=== PATIENT | male | born 1950 ===

== ENCOUNTER 2016-08-10 08:40 | Inpatient (IN) | payer OTHER ==
--- NOTE | 2016-08-04 17:47 | HP ---
HISTORY AND PHYSICAL: DATE OF ADMISSION/SURGERY: 08/10/16 ATTENDING SURGEON: Dr. Fuller (DICTATED BY PONCE DICK) PROCEDURE: Left total hip arthroplasty. CHIEF COMPLAINT: Left hip pain. HISTORY OF PRESENT ILLNESS: Mr. Cantor is a 66-year-old gentleman with complaints of left hip pain secondary to advanced osteoarthritis. He has failed conservative management and has elected to proceed with a left total hip arthroplasty which is scheduled for 08/10/[address] Fuller. PAST MEDICAL HISTORY: 1. Coronary artery disease. 2. Hyperlipidemia. 3. Hypertension. 4. Sleep apnea. 5. Basal cell carcinoma of the skin. PAST SURGICAL HISTORY: 1. Stent placement. 2. Cataract removal. 3. Hernia repair. 4. Right total hip arthroplasty. 5. Tonsillectomy. 6. Skin graft surgery. CURRENT MEDICATIONS: 1. Naproxen 500 mg once a day. 2. Ipratropium bromide 0.03% intranasal spray twice daily. 3. Dymista 137/50 mcg/ACT 1 spray twice a day. 4. Cholestyramine daily. 5. Atorvastatin calcium 80 mg daily. 6. Metoprolol ER 50 mg daily. 7. Zetia 10 mg daily. 8. Aspirin 81 mg daily. 9. Glucosamine/chondroitin daily. 10. Calcium, magnesium, zinc, and vitamin D daily. 11. Milk thistle 1 tab daily. 12. [place]-3-6-9 complex 1 pill daily. 13. Ocuvite Lutein 1 pill daily. 14. Multivitamin 1 tab daily. 15. CoQ10 10 mg 1 capsule daily. 16. Chromium picolinate 200 mcg 1 pill daily. 17. Selenium 100 mcg 1 tab daily. 18. Potassium 99 mg 1 tab daily. 19. Zyrtec 10 mg daily. ALLERGIES: To NIASPAN, POLLEN, MOLD, and NICOTINE. FAMILY HISTORY: Heart disease, Alzheimer's, and hypertension. SOCIAL HISTORY: This is a 66-year-old gentleman. He lives with his . He does not smoke or use drugs. Uses occasional alcohol. REVIEW OF SYSTEMS: A complete 14-point review of systems was reviewed with the patient, was all negative or noncontributory. PHYSICAL EXAMINATION GENERAL: He is well developed, well nourished in no acute distress. VITAL SIGNS: He stands 5 feet 5 inches tall, weighs 190 pounds. His blood pressure is 128/75, his heart rate is 72. HEENT: Normocephalic, atraumatic. NECK: Supple. No palpable lymph nodes. PULMONARY: The lungs are clear to auscultation. CARDIO: Regular rate and rhythm. Strong S1, S2. ABDOMEN: Soft, nontender, nondistended. NEUROLOGICAL: Alert and oriented x3. Cranial nerves II through XII are intact. MUSCULOSKELETAL: Left lower extremity: The skin is intact. He walks with an antalgic-type gait favoring his left leg. He has limited internal and external rotation of the left hip. His lower extremity muscle group strengths are intact at 5/5. He has intact sensation and 2+ dorsalis pedis pulses. ASSESSMENT AND PLAN: Mr. Cantor is a 66-year-old gentleman with complaints of left hip pain secondary to advanced osteoarthritis. He has failed conservative management and has elected to proceed with a left total hip arthroplasty which is scheduled for 08/10/[address] Fuller discussed the risks and benefits of the surgery and all of his questions were answered. Percocet and Colace were sent to his pharmacy for postoperative pain control. He will likely use aspirin 325 twice a day for DVT prophylaxis once home. He will follow up with Dr. Fuller in 2 weeks following the surgery. PONCE DICK [id number]/[facility] #: [id number] MTDChauncey
[~2016-08-10 08:40] MED LIST: Buffered Lidocaine 0.9% SYRIN* 5 ML/SYR SYRINGE INTRADERM ONE; Gabapentin CAP(*) 400 MG PO ONE; Naproxen TAB* 250 MG PO ONE; Sodium Citrate/Citric Acid* 15 ML UDC PO ONE
[2016-08-10] MEDS ORDERED: Gabapentin CAP(*) 300 MG ONE ×2 (09:04→09:32)
[2016-08-10] MEDS ORDERED: ceFAZolin 2 GM PREMIX(*) 2 GM/50 ML BAG IVPB ONE (09:04)
[2016-08-10] MEDS ORDERED: Buffered Lidocaine 0.9% SYRIN* 5 ML/SYR SYRINGE ONE (09:04)
[2016-08-10] MEDS ORDERED: Sodium Citrate/Citric Acid* 15 ML UDC ONE (09:04)
[2016-08-10] MEDS ORDERED: Morphine PF AMP (0.5MG/ML)* 5 MG/10 ML AMP ONE (11:03)
[2016-08-10] MEDS ORDERED: Midazolam* 1 MG/ML 5 ML VIAL (5 MG) ONE (11:03)
[2016-08-10] MEDS ORDERED: fentaNYL* 50 MCG/ML 2 ML VIAL (100 MCG VIAL) ONE (11:03)
[2016-08-10] MEDS ORDERED: Bupivacaine 0.5% SDV PF* 30 ML VIAL ONE (11:04)
[2016-08-10] MEDS ORDERED: Naloxone* 0.4 MG/ML 1 ML VIAL IV PRN (11:53)
[2016-08-10] MEDS ORDERED: Nalbuphine* 20 MG/ML 1 ML VIAL IV PRN (11:53)
[2016-08-10] MEDS ORDERED: HYDROcodone/ACETAMIN 5-325 MG* 1 TAB PO PRN (11:53)
[2016-08-10] MEDS ORDERED: DiMENhydriNATE IV* 50 MG/ML VIAL IV PUSH PRN (11:53)
[2016-08-10] MEDS ORDERED: Acetaminophen IV 1GM/100ML * 10 MG/ML VIAL IVPB ONE (11:55)
[2016-08-10] MEDS ORDERED: fentaNYL* 50 MCG/ML 2 ML VIAL (100 MCG VIAL) IV PRN (11:55)
[2016-08-10] MEDS ORDERED: EPHEDrine (Pressors)* 50 MG/ML VIAL ONE (12:07)
--- NOTE | 2016-08-10 13:40 | RAD ---
INDICATION: Left total hip replacement surgery. COMPARISON: Comparison is made with a prior x-ray study of the hips from December 15, 2015. TECHNIQUE: A portable film of the pelvis was obtained in the operating room. FINDINGS: The patient's is undergoing a total left hip replacement surgery. The acetabular prosthesis appears in place. There is a femoral template prostheses in place. There is air in the adjacent soft tissues consistent with the patient's surgery. The patient is status post remote total right hip replacement surgery. IMPRESSION: INTRAOPERATIVE CONTROL FILMS.
[2016-08-10] MEDS ORDERED: Polyethylene Glycol 3350* 17 GM PACKET PO PRN (13:43)
[2016-08-10] MEDS ORDERED: Bisacodyl SUPP* 10 MG SUPP PR PRN (13:43)
--- NOTE | 2016-08-10 15:01 | RAD ---
HISTORY: Status post left hip arthroplasty COMPARISONS: December 15, 2015 VIEWS: 3, frontal views of the pelvis with frontal and crosstable lateral views of the left hip FINDINGS: BONE DENSITY: Normal. BONES: The patient is status post bilateral hip arthroplasty. On the left, there is no hardware failure or osteolysis. There is heterotopic bone formation on the right JOINTS: The patient is status post bilateral hip arthroplasty ALIGNMENT: There is no dislocation. SOFT TISSUES: Unremarkable. OTHER FINDINGS: None. IMPRESSION: STATUS POST BILATERAL HIP ARTHROPLASTY
--- NOTE | 2016-08-10 16:21 | HP ---
History of Present Illness - History of Present Illness Reason for Visit: Status post Left hip arthroplasty, medical consultation has been requested History of Present Illness: This is a 66 yo white male with PMH of CAD with stent placement, Hyperlipidemia , HTN, and NORA that presents post-op for elective left total hip arthroplasty secondary to OA with surgeon Dr. Fuller on 08/10/2016. Patient is alert and oriented drinking fluids post-surgery. He states he previously had the other hip done last year with no complications. He denies SOB, cough, fever, chills, abdominal pain, n/v, chest pain, or palpitations. Denies any pain at surgical site. - Past Medical History Cardiac: CAD, HTN, Hyperlipidemia Pulmonary: Other - Obstructive Sleep Apnea - Past Surgical History Past Surgical History: Hernia Repair, Total Hip Replacement, Tonsillectomy - Past Family History Family History: None - Past Social History Smoke: No Occupation: [employer] Alcohol: None Drugs: None Lives: With Family Review of Systems - Review of Systems Other: ROS is negative as stated in HPI. - Medications/Allergies Allergies/Adverse Reactions: Allergies Allergy/AdvReac Type Severity Reaction Status Date / Time Molds & Smuts Allergy Sneezing Verified 08/10/16 09:08 Niacin [From Niaspan] Allergy Rash Verified 08/10/16 09:08 Nicotine Allergy See Comment Verified 08/10/16 09:08 pollen/seasonal Allergy Eyes Uncoded 08/10/16 09:08 Itchy/Swollen/Red/Watery Medications: Current Medications Acetaminophen (Ofirmev*) 1,000 mg IVPB ONCE ONE Stop: 08/10/16 11:56 Acetaminophen (Tylenol Tab*) 650 mg PO Q4H PRN PRN Reason: PAIN OR TEMPERATURE Hydrocodone Bitart/Acetaminophen ([place] 5-325 Tab*) 1 tab PO Q3H PRN PRN Reason: give one dose to start Albuterol (Ventolin Hfa Inhaler*) 2 puff INH BID CHELLE Atorvastatin Calcium (Lipitor*) 80 mg PO QAM CHELLE Azelastine/Fluticasone (Dymista(Nf)) spray BOTH NARES BID CHELLE Bisacodyl (Dulcolax Supp*) 10 mg MN DAILY PRN PRN Reason: constipation Cholestyramine Resin (Questran*) 18 gm PO QAM CHELLE Citric Acid/Sodium Citrate (Bicitra*) 15 ml PO ONCE ONE Stop: 08/10/16 06:01 Last Admin: 08/10/16 09:40 Dose: 15 ml Dimenhydrinate (Dramamine Iv*) 25 mg IV PUSH Q6H PRN PRN Reason: Nausea/Vomiting Diphenhydramine HCl (Benadryl Iv*) 12.5 mg IV Q6H PRN PRN Reason: PRURITIS Docusate Sodium (Colace Cap*) 100 mg PO BID [facility] Ezetimibe (Zetia Tab*) 10 mg PO QAM [facility] Enoxaparin Sodium (Lovenox(*)) 30 mg SUBCUT Q24H [facility] Fentanyl Citrate (Fentanyl*) 50 mcg IV Q5M PRN PRN Reason: PAIN - MODERATE Stop: 08/10/16 12:16 Gabapentin (Neurontin Cap(*)) 1,200 mg PO ONCE ONE Stop: 08/10/16 06:01 Last Admin: 08/10/16 09:40 Dose: 1,200 mg Lactated Ringer's (Lactated Ringers 1000 Ml Bag*) 1,000 mls @ 200 mls/hr IV PER RATE [facility] Last Admin: 08/10/16 09:27 Dose: 200 mls/hr Cefazolin Sodium 1 gm/ Sodium (Chloride) 50 mls @ 200 mls/hr IVPB Q8H [facility] Stop: 08/11/16 06:14 Lactated Ringer's (Lactated Ringers 1000 Ml Bag*) 1,000 mls @ 100 mls/hr IV PER RATE [facility] Last Admin: 08/10/16 15:59 Dose: 100 mls/hr Ibuprofen (Motrin Tab*) 800 mg PO Q6H [facility] Lactulose (Lactulose*) 30 ml PO Q6H PRN PRN Reason: constipation Lidocaine/Sodium Bicarbonate (Buffered Lidocaine 0.9% Syrin*) 0.2 ml INTRADERM ONCE ONE Stop: 08/09/16 14:05 Magnesium Hydroxide (Milk Of Magnesia Liq*) 30 ml PO Q6H PRN PRN Reason: constipation Metoprolol Succinate (Toprol Xl Tab*) 50 mg PO QAM [facility] Morphine Sulfate (Morphine Inj (Syringe)*) 2 mg IV Q2H PRN PRN Reason: PAIN Nalbuphine HCl (Nubain*) 5 mg IV Q6H PRN PRN Reason: pruritis Naloxone HCl (Narcan*) 0.08 mg IV Q2M PRN PRN Reason: respiratory depression Ondansetron HCl (Zofran Inj*) 4 mg IV Q6H PRN PRN Reason: Nausea/Vomiting Ondansetron HCl (Zofran Inj*) 4 mg IV Q6H PRN PRN Reason: nausea Oxycodone HCl (Roxycodone Tab*) 10 mg PO Q4H PRN PRN Reason: SEVERE PAIN Oxycodone/Acetaminophen (Percocet 5/325 Tab*) 1 tab PO Q3H PRN PRN Reason: PAIN - MODERATE Oxycodone/Acetaminophen (Percocet 5/325 Tab*) 2 tab PO Q3H PRN PRN Reason: PAIN - MODERATE Polyethylene Glycol/Electrolytes (Miralax*) 17 gm PO DAILY PRN PRN Reason: Constipation Warfarin Sodium (Coumadin Tab(*)) 6 mg PO ONCE@1700 ONE PRN Reason: Protocol Stop: 08/10/16 17:01 Exam - Exam Vital Signs: Vital Signs: Temp Pulse Resp BP Pulse Ox 97.4 F 58 16 110/61 100 08/10/16 16:58 08/10/16 16:58 08/10/16 16:58 08/10/16 16:58 08/10/16 16:58 General: Other - 66 yo white male that appears stated age that is pleasant, alert and oriented x3, in NAD HEENT: Atraumatic, Mucous membr. moist/pink Lungs: Other - Chest is symmetric and lungs are clear to auscultation. Cardiovascular: Regular rate, No murmurs, Gallops, Rubs Abdomen: Normal bowel sounds, Soft, No tenderness Extremities: No edema, Normal pulses, No tenderness/swelling Skin: No rashes, No breakdown Neurological: Other - Alert and Oriented X3 Psych/Mental Status: Mental status NL Assessment/Plan - Assessment/Plan Assessment: This is a 66 yo white male who is status post op for left total hip arthroplasty by Dr. Fuller earlier today with PMH of CAD, HTN, hyperlipidemia, and NORA. Hospitalist group has been consulted for medical co-management. 1) Status post total hip arthroplasty: Hospitalist group will co-manage patient otherwise postop management is done via ortho for DVT prophylaxis, pain management, and further discharge plans. 2) HTN: Recommend Continue Metoprolol ER and blood pressure will be monitored. 3) Hyperlipidemia: Recommend Continue Atorvastatin. 4) NORA: Use BPAP machine overnight. 5) CAD: Recommend Continue ASA therapy. 6) DVT: Managed via orthopedic surgery, does appear that patient has been ordered Lovenox to begin tomorrow. 7) Code Status: Full code. Disposition: Patient is transferred to [facility] and hospitalist group will continue to follow. Patient states he plans on returning home with post-discharge and following up with PT Lab Results - Lab Results Lab Results: Laboratory Tests 08/04/16 15:25 WBC 6.5 RBC 4.81 Hgb 15.8 Plt Count 182 Laboratory Tests 08/04/16 15:25 Sodium 138 Potassium 3.9 Chloride 102 Carbon Dioxide 28 BUN 16 Creatinine 0.79 Glucose 83 Pre-operative EKG within normal limits and pre-operative labs reviewed H&H 15.8/ 47, Sodium 138, Potassium 3.9, and Creatinine of 0.79.
[2016-08-10] MEDS ORDERED: Warfarin TAB(*) 6 MG PO ONE (17:00)
[2016-08-10] MEDS: Ibuprofen TAB* 800 MG PO SCH ×2 (17:06→17:35)
--- NOTE | 2016-08-10 19:04 | CONS ---
CC: Dr. Tate; Dr. Fuller * MEDICAL CONSULTATION REPORT: DATE OF CONSULT: 08/10/16 PRIMARY CARE PROVIDER: Dr. Tate. REQUESTING PROVIDER: Dr. Fuller. CONSULTING PROVIDER: PONCE Rodriguez SUPERVISING PHYSICIAN: Dr. Kacie Lilly. CHIEF COMPLAINT: Status post left total hip arthroplasty and medical consultation has been requested for comanagement. HISTORY OF PRESENT ILLNESS: This is a 66-year-old gentleman with a history of coronary artery disease, hypertension, hyperlipidemia, and obstructive sleep apnea who presented today for elective left total hip arthroplasty. He reports that his chronic medical conditions have been stable as of late. He had his right hip done about a year and a half ago and has had no complications since that procedure. The patient denies chest pain, shortness of breath, abdominal pain, and nausea or vomiting. He is experiencing no pain at this time and overall feels quite well. PAST MEDICAL HISTORY: 1. Coronary artery disease, status post PCI. 2. Hyperlipidemia. 3. Hypertension. 4. Obstructive sleep apnea, compliant with CPAP. PAST SURGICAL HISTORY: 1. PCI. 2. Cataract extraction. 3. Hernia repair. 4. Right total hip arthroplasty. 5. Tonsillectomy. 6. Skin graft. HOME MEDICATIONS: 1. Albuterol inhaler 2 puffs inhaled twice daily as needed for shortness of breath. 2. Aspirin 81 mg p.o. daily. 3. Atorvastatin 80 mg p.o. daily. 4. Astelin and fluticasone nasal spray one spray in each nostril twice daily. 5. Cetirizine 10 mg p.o. daily. 6. Cholestyramine 18 g p.o. daily. 7. Docusate 100 mg p.o. twice daily. 8. Zetia 10 mg p.o. daily. 9. Ipratropium bromide nasal spray 0.03% spray intranasally twice daily. 10. Metoprolol succinate 50 mg p.o. daily. SOCIAL HISTORY: The patient is a [employer] professor. No significant smoking history. No regular alcohol consumption. REVIEW OF SYSTEMS: As listed above in the HPI and otherwise reported negative. PHYSICAL EXAM: Most recent vitals: Temperature 98.1 degrees Fahrenheit, pulse 54 beats per minute, respiratory rate 16 per minute, oxygen saturation 99% on 2 L, and blood pressure 124/67 mmHg. General: This is a very pleasant 66-year- old gentleman lying comfortably in the hospital bed, in no acute distress. HEENT: Head is normocephalic, atraumatic with glasses in place. Mucous membranes are pink and moist. Cardiovascular: Heart has a regular rate and rhythm without murmurs, rubs, or gallops. Respiratory: There are a few crackles appreciated at lung bases bilaterally, but otherwise clear and without rhonchi or wheezing. Abdomen: Abdomen is soft and nontender to palpation. Extremities: No edema appreciated. Hip pillow is in place and distal pulses are intact. Psych: The patient is alert and appropriately oriented. Skin: Limited exam shows no concerning rashes or lesions. LABORATORY DATA: Reviewed preoperative labs from 08/04/16 which included a CBC and a comprehensive metabolic panel. CBC was unremarkable with a preoperative hemoglobin of 15.8 g/dL. Comprehensive metabolic panel was remarkable only for mildly elevated total bilirubin to 1.4, otherwise within normal limits and preop creatinine of 0.79. IMAGING: Preop EKG shows a normal sinus rhythm. ASSESSMENT AND PLAN: This is a 66-year-old gentleman with hypertension, hyperlipidemia, coronary artery disease, and obstructive sleep apnea, who underwent left total hip arthroplasty with Dr. Fuller earlier today. Hospitalist group has been asked to consult for medical comanagement. 1. Status post left total hip arthroplasty - postoperative management per Dr. Fuller and her orthopedic team including DVT prophylaxis, pain management, and discharge planning. 2. Hypertension - the patient is normotensive at this time. He states that he took his metoprolol this morning. Recommend continuing his home dose of metoprolol at this time. 3. Hyperlipidemia - continue home lipid lowering agents. 4. Coronary artery disease - no evidence of acute coronary syndrome. Plan to continue aspirin, beta-dorian and statin. 5. Obstructive sleep apnea - the patient brought his CPAP machine with him and this will be ordered for use during his hospital stay. 6. Code status - the patient is full code. 7. Healthcare proxy is his . 8. DVT prophylaxis per Orthopedic Surgery. He has been ordered Lovenox to start tomorrow. DISPOSITION: Hospitalist group will continue to follow along with this patient during his hospital stay. Disposition will ultimately be per orthopedic surgery team. PONCE RODRIGUEZ [id number]/[facility] #: [id number] [facility] MEDICAL CENTERChauncey
[2016-08-10] MEDS: ceFAZolin VIAL(*) 1 GM in NS 0.9% 50 ML* 50 ML IVPB SCH (20:15)
[2016-08-10] MEDS: Azelastine/Fluticasone NAS(NF) BTL BOTH NARES SCH (20:47)
[2016-08-10] MEDS ORDERED: Albuterol HFA INHALER* 8 gm MDI INH SCH (21:00)
[2016-08-10] MEDS: Docusate CAP* 100 MG PO SCH (21:44)
[2016-08-11] MEDS: Ibuprofen TAB* 800 MG PO SCH (00:11)
--- NOTE | 2016-08-11 01:28 | OP ---
DATE OF OPERATION: 08/10/16 - ROOM #341 DATE OF : 54 ATTENDING SURGEON: Jessica Fuller MD PAIRER: PONCE Souza. Ms. Morrow did help throughout the procedure with preparation of the leg, wound retraction, manipulation of the hip, and wound closure. ANESTHESIOLOGIST: Les Miranda MD ANESTHESIA: Spinal. PRE-OP DIAGNOSIS: Severe end-stage degenerative osteoarthritis of the left hip joint. POST-OP DIAGNOSIS: Severe end-stage degenerative osteoarthritis of the left hip joint. OPERATIVE PROCEDURE: Left total hip arthroplasty. HARDWARE USED: This is uncemented [place] total hip hardware. For the cup, a Trident hemispherical acetabular shell 52E, a cementless MDM liner 42E. For the stem, an Accolade TMZF, size 3.5 with a 132-degree neck. The MDM liner, [place] X3 insert liner, 28/48/42E. For the head, a Biolox delta ceramic V40 femoral head, 28 -4. COMPLICATIONS: None. BLOOD LOSS: 250 cc. SPECIMEN: Femoral head and acetabular reaming sent to pathology. BRIEF HISTORY/INDICATION: Mr. Cantor is a 66-year-old gentleman with years of increasingly severe left hip pain. He failed anti-inflammatories, pain medications, ambulatory assistive devices, and physical therapy. He elected to undergo left total hip arthroplasty due to continued pain and decreased quality of life. Radiographs confirmed severe end-stage arthritis. Informed consent was obtained from the patient. He understood the risks of the procedure included, but were not limited to bleeding, infection, damage to nearby structures, continued pain, need for further surgery, intraoperative fracture, nerve palsy, hardware failure or loosening, dislocation, leg length discrepancy , stroke, heart attack, blood clot, and . He wished to proceed. INTRAOPERATIVE FINDINGS: Intraoperatively, the patient was noted to have complete loss of cartilage along the femoral head and acetabulum. DESCRIPTION OF PROCEDURE: Mr. Cantor was identified in the preanesthesia unit. His left lower extremity was marked as the correct operative side. Informed consent was signed and placed in the chart. The patient was taken to the operating room and placed under spinal anesthesia without difficulty. A Chairez catheter was placed. The patient was placed in the right lateral decubitus position on the peg board and all bony prominences were well padded. Left lower extremity was prepped and draped in the usual sterile fashion. Preop time-out was made to correctly identify the patient's side and site. Appropriate perioperative antibiotics were given within 1 hour of incision. A 12-cm posterior hip incision was made with a 10 blade and carried down to the lateral fascial layer. Lateral fascial layer was incised in line with the skin incision using a new 10 blade. Charley retractor was placed. The piriformis and conjoint tendons were easily visualized. These were elevated off the posterolateral femur using electrocautery and tagged with two #5 Ethibonds. Next, electrocautery was used to make a standard posterolateral capsular flap and this was also tagged with two #5 Ethibonds. The hip was carefully dislocated. Lesser troch to center of the femoral head measured 50 mm. Oscillating saw was used to make the appropriate femoral neck cut. The femoral head was sent to pathology. The femur was carefully retracted anteriorly. After appropriate placement of retractor, the acetabulum was easily visualized. Long handled knife was used to sharply remove any remaining labrum from the acetabular rim. The acetabulum was sequentially reamed up to a size 51. A good bleeding bone bed was obtained and the osteophytes were removed. A 51 trial had good fit and stability. Final acetabular cup chosen was a Trident hemispherical acetabular shell, 52E. This was impacted into the acetabulum without difficulty. There was excellent stability as well as appropriate anteversion and abduction angle. An MDM cementless liner 42E was chosen and impacted into the acetabular cup. The stability of the liner was checked and rechecked and noted to be stable. Attention was next turned to preparation of the proximal femur. Box cut osteotome and canal finder were used to enter the proximal femur. Proximal femur was sequentially broached up to a size 3.5. 3.5 broach had excellent stability and appropriate anteversion. A 132 neck trial was placed as well as a 28 +0 head. Lesser troch to center of the femoral head measured 54 mm; therefore, a -4 head was chosen. This measured 50 mm. The hip was reduced and taken through range of motion. The hip was stable in all positions with appropriate soft tissue tension and leg lengths. The hip was carefully dislocated. All trials were carefully removed. The hip was copiously irrigated with sterile saline. Final implant chosen was an Accolade TMZF, size 3.5 with a 132-degree neck angle. This was impacted into the femoral canal without difficulty. The stem had excellent stability and appropriate anteversion. The E MDM [place] X3 liner with a 28 -4 ceramic Biolox delta V40 femoral head was chosen. These were impacted onto the femoral neck without difficulty. Lesser troch to center of the femoral head measured 50 mm. The hip was reduced and taken through a range of motion. The hip was stable in all positions. The hip was copiously irrigated with sterile saline. Previously tagged capsule and tendons were reapproximated to the posterolateral femur using 2 trochanteric drill holes. Lateral fascial layer was closed using interrupted # 1 Vicryls. The rest of the incision was closed in a layered fashion using 0 and 2-0 Vicryls. Skin was closed using 3-0 Monocryl and Dermabond. Sterile Adaptic, 4x4s, and paper tape were used to cover the incision. The patient's anesthesia was reversed without difficulty. He was taken to the PACU in stable condition. Intended weightbearing will be weightbearing as tolerated with posterior hip precautions. Intended DVT prophylaxis will be Coumadin with a Lovenox bridge. [id number]/[facility] #: [id number] LYNDON
[2016-08-11] MEDS ORDERED: Acetaminophen TAB* 325 MG PO PRN (03:15)
[2016-08-11] MEDS ORDERED: Ondansetron INJ* 2 MG/ML VIAL IV PRN ×2 (03:15)
[2016-08-11] MEDS ORDERED: oxyCODONE/Acetamin 5/325 MG* TAB PO PRN (03:15)
[2016-08-11] MEDS ORDERED: Morphine INJ* 2 MG/ML 1 ML SYRINGE IV PRN (03:15)
[2016-08-11] MEDS ORDERED: diPHENhydraMINE IV* 50 MG/ML 1 ml VIAL (BENADRYL) IV PRN (03:15)
[2016-08-11] MEDS ORDERED: oxyCODONE TAB* 5 MG TAB PO PRN (03:15)
[2016-08-11] MEDS: oxyCODONE/Acetamin 5/325 MG* TAB PO PRN ×5 (03:51→23:40)
[2016-08-11] MEDS: ceFAZolin VIAL(*) 1 GM in NS 0.9% 50 ML* 50 ML IVPB SCH ×2 (03:52→11:22)
[2016-08-11 06:12] LABS: Hematocrit 33 % (42-52); Hemoglobin 11.4 g/dl (14.0-18.0)
[2016-08-11 06:42] LABS: BUN/Creatinine Ratio 17.6 (8-20); Calcium 8.2 mg/dL (8.6-10.3); EGFR African American 136.9 (>60); EGFR Non-African American 106.5 (>60); Potassium 3.9 mmol/L (3.5-5.0)
--- NOTE | 2016-08-11 08:49 | PN ---
Progress Note - Progress Note SOAP: Subjective: 66 y/o female s/p L GUCCI 08/10/[address] Fuller. VSS overnight, H&H stable. Patient feeling well, pain well controlled, mild stiffness, no other complaints Objective: General- Well appearing, sitting in chair comfortably, able to rise without assistance, AO MSK- Incision without drianage, no erythema noted, non-tender to light palpation , neg homans b/l, PT 2+ b/l, no edema noted b/l LE's, + DF/PF, sensation grossly intact b/l. Vital Signs Temp 98.2 F 08/11/16 07:56 Pulse 64 08/11/16 07:56 Resp 16 08/11/16 08:01 BP 107/59 08/11/16 07:56 Pulse Ox 97 08/11/16 07:56 Intake & Output 08/10/16 08/11/16 08/11/16 18:59 06:59 18:59 Intake Total 2660 2614 Output Total 900 Balance 2660 1714 Weight 188 lb 9.6 oz Intake: IV Fluids 2300 951 LR 2300 951 IVPB 53 ABX - CEFAZOLIN 53 Oral 360 1610 Output: Urine 550 Chairez 350 Laboratory Results - last 24 hr 08/11/16 08/11/16 08/11/16 05:50 05:50 05:50 Hgb 11.4 L Hct 33 L INR (Anticoag Therapy) 1.16 H Sodium 135 Potassium 3.9 Chloride 103 Carbon Dioxide 29 Anion Gap 3 BUN 13 Creatinine 0.74 Est GFR ( Amer) 136.9 Est GFR (Non-Af Amer) 106.5 BUN/Creatinine Ratio 17.6 Glucose 98 Calcium 8.2 L Assessment: 66 y/o female s/p L GUCCI 08/10/[address] Fuller. Plan: - DVT prophylaxis- Lovenox, ASA 325mg daily. HOme on ASA. - Continue PT/OT - REviewed precautions - LIkely D/C home tomorrow Active Medications Generic Name Dose Route Start Last Admin Trade Name Freq PRN Reason Stop Dose Admin Acetaminophen 650 mg 08/11/16 03:15 Tylenol Tab* PO Q4H PRN PAIN OR TEMPERATURE Albuterol 2 puff 08/10/16 21:22 Ventolin Hfa Inhaler* INH BID [facility] Atorvastatin Calcium 80 mg 08/11/16 09:00 Lipitor* PO QAM [facility] Azelastine/Fluticasone 1 spray 08/10/16 21:00 08/10/16 20:47 Dymista(Nf) BOTH NARES Not Given BID [facility] Bisacodyl 10 mg 08/10/16 13:43 Dulcolax Supp* DE DAILY PRN constipation Cholestyramine Resin 18 gm 08/11/16 09:00 Questran* PO QAM [facility] Diphenhydramine HCl 12.5 mg 08/11/16 03:15 Benadryl Iv* IV Q6H PRN PRURITIS Docusate Sodium 100 mg 08/10/16 21:00 08/10/16 21:44 Colace Cap* PO 100 mg BID [facility] Administration Ezetimibe 10 mg 08/11/16 09:00 Zetia Tab* PO QAM [facility] Enoxaparin Sodium 30 mg 08/11/16 11:00 Lovenox(*) SUBCUT Q24H [facility] Cefazolin Sodium 1 gm/ Sodium 50 mls @ 200 mls/hr 08/10/16 19:30 08/11/16 03: 52 Chloride IVPB 08/11/16 11:44 200 mls/hr Q8H [facility] Administration Lactated Ringer's 1,000 mls @ 100 mls/hr 08/10/16 14:00 08/11/16 01:49 Lactated Ringers 1000 Ml Bag* IV 100 mls/hr PER RATE [facility] Administration Lactulose 30 ml 08/10/16 13:43 Lactulose* PO Q6H PRN constipation Magnesium Hydroxide 30 ml 08/10/16 13:43 Milk Of Magnesia Liq* PO Q6H PRN constipation Metoprolol Succinate 50 mg 08/11/16 09:00 Toprol Xl Tab* PO QAM [facility] Morphine Sulfate 2 mg 08/11/16 03:15 Morphine Inj (Syringe)* IV Q2H PRN PAIN Ondansetron HCl 4 mg 08/11/16 03:15 Zofran Inj* IV Q6H PRN Nausea/Vomiting Ondansetron HCl 4 mg 08/11/16 03:15 Zofran Inj* IV Q6H PRN nausea Oxycodone HCl 10 mg 08/11/16 03:15 Roxycodone Tab* PO Q4H PRN SEVERE PAIN Oxycodone/Acetaminophen 1 tab 08/11/16 03:15 Percocet 5/325 Tab* PO Q3H PRN PAIN - MODERATE Oxycodone/Acetaminophen 2 tab 08/11/16 03:15 08/11/16 08:01 Percocet 5/325 Tab* PO 2 tab Q3H PRN Administration PAIN - MODERATE Pharmacy Profile Note 1 note 08/10/16 17:00 08/10/16 17:06 Coumadin Daily Reminder* FOLLOW UP 1 note 1700 [facility]HELLE Administration Pneumococcal Polyvalent Vaccine 0.5 ml 08/11/16 09:00 Pneumococcal Vac Polyvalent* IM 08/11/16 09:01 .ONCE ONE Polyethylene Glycol/Electrolytes 17 gm 08/10/16 13:43 Miralax* PO DAILY PRN Constipation Warfarin Sodium 7.5 mg 08/11/16 17:00 Coumadin Tab(*) PO 08/11/16 17:01 ONCE@1700 ONE Protocol
[2016-08-11] MEDS: Metoprolol Succinate XL TAB* 50 MG PO SCH (09:00)
[2016-08-11] MEDS ORDERED: Pneumococcal Vac Polyvalent* 0.5 ML VIAL IM ONE (09:00)
[2016-08-11] MEDS: Azelastine/Fluticasone NAS(NF) BTL BOTH NARES SCH ×2 (10:02→20:13)
[2016-08-11] MEDS: Atorvastatin* 80 MG TAB PO SCH (10:05)
[2016-08-11] MEDS: Ezetimibe TAB* 10 MG PO SCH (10:05)
[2016-08-11] MEDS: Docusate CAP* 100 MG PO SCH ×2 (10:05→20:13)
[2016-08-11] MEDS: ALBUTEROL INH SCH ×2 (10:05→23:56)
--- NOTE | 2016-08-11 10:37 | PN ---
Progress Note - Progress Note SOAP: Subjective: [This is a 66 yo white male s/p Left hip arthroplasty with a history of CAD, HTN , Hyperlipidemia, and NORA that presents post-op day one. Patient denies any complaints at this time pain is well managed and able to ambulate to bathroom and back. Per nursing staff, he has been able to stand and slept overnight. Patient voices concern of mild erythema of his surgical sight but believes it is due to icing treatment. When inspecting the area it is cool to the touch with moderate edema, no erythema. Vital signs stable overnight H&H stable. ] Objective: [General: 66 yo white male s/p Left hip arthroplasty in no acute distress. Lungs: mild crackles at both lung bases, otherwise clear to auscultation. Heart: RRR, No murmurs, rubs or gallops Extremities: Patient is able to dorsiflex and flex bilateral ankles and flex and extend thighs bilaterally. Distal pulses and sensation intact bilaterally. Vital Signs Temp Pulse Resp BP Pulse Ox 98.2 F 64 16 107/59 97 08/11/16 07:56 08/11/16 07:56 08/11/16 08:04 08/11/16 07:56 08/11/16 08:04 Laboratory Last Values Hgb 11.4 g/dl (14.0-18.0) L 08/11/16 05:50 Hct 33 % (42-52) L 08/11/16 05:50 INR (Anticoag Therapy) 1.16 (0.89-1.11) H 08/11/16 05:50 Sodium 135 mmol/L (133-145) 08/11/16 05:50 Potassium 3.9 mmol/L (3.5-5.0) 08/11/16 05:50 Chloride 103 mmol/L (101-111) 08/11/16 05:50 Carbon Dioxide 29 mmol/L (22-32) 08/11/16 05:50 Anion Gap 3 mmol/L (2-11) 08/11/16 05:50 BUN 13 mg/dL (6-24) 08/11/16 05:50 Creatinine 0.74 mg/dL (0.67-1.17) 08/11/16 05:50 Est GFR ( Amer) 136.9 (>60) 08/11/16 05:50 Est GFR (Non-Af Amer) 106.5 (>60) 08/11/16 05:50 BUN/Creatinine Ratio 17.6 (8-20) 08/11/16 05:50 Glucose 98 mg/dL (70-100) 08/11/16 05:50 Calcium 8.2 mg/dL (8.6-10.3) L 08/11/16 05:50 INR: 1.16 ] Assessment/Plan: This is a 66 yo white male who is status post op for left total hip arthroplasty by Dr. Fuller earlier today with PMH of CAD, HTN, hyperlipidemia, and NORA. Hospitalist group has been consulted for medical co-management. 1) Status post total hip arthroplasty: Hospitalist group will co-manage patient otherwise postop management is done via ortho for DVT prophylaxis, pain management, and further discharge plans. 2) HTN: Recommend Continue Metoprolol ER and blood pressure will be monitored. 3) Hyperlipidemia: Recommend Continue Atorvastatin. 4) NORA: Use BPAP machine overnight. 5) CAD: Recommend Continue ASA therapy. 6) DVT: Managed via orthopedic surgery, patient is on lovenox and started 7.5 coumadin last night.. 7) Code Status: Full code. Disposition: Patient is transferred to [facility] and hospitalist group will continue to follow. Patient states he plans on returning home with post-discharge and following up with PT Current medications: Acetaminophen (Tylenol Tab*) 650 mg PO Q4H PRN PRN Reason: PAIN OR TEMPERATURE Albuterol (Ventolin Hfa Inhaler*) 2 puff INH BID [facility] Last Admin: 08/11/16 10:05 Dose: 2 puff Atorvastatin Calcium (Lipitor*) 80 mg PO QAM [facility] Last Admin: 08/11/16 10:05 Dose: 80 mg Azelastine/Fluticasone (Dymista(Nf)) 1 spray BOTH NARES BID [facility] Last Admin: 08/11/16 10:02 Dose: Not Given Bisacodyl (Dulcolax Supp*) 10 mg PA DAILY PRN PRN Reason: constipation Cholestyramine Resin (Questran*) 18 gm PO QAM [facility] Diphenhydramine HCl (Benadryl Iv*) 12.5 mg IV Q6H PRN PRN Reason: PRURITIS Docusate Sodium (Colace Cap*) 100 mg PO BID [facility] Last Admin: 08/11/16 10:05 Dose: 100 mg Ezetimibe (Zetia Tab*) [facility] [place] Last Admin: 08/11/16 10:05 Dose: 10 mg Enoxaparin Sodium (Lovenox(*)) 30 mg SUBCUT Q24H [facility] Cefazolin Sodium 1 gm/ Sodium (Chloride) 50 mls @ 200 mls/hr IVPB Q8H [facility] Stop: 08/11/16 11:44 Last Admin: 08/11/16 03:52 Dose: 200 mls/hr Lactated Ringer's (Lactated Ringers 1000 Ml Bag*) 1,000 mls @ 100 mls/hr IV PER RATE [facility] Last Admin: 08/11/16 01:49 Dose: 100 mls/hr Lactulose (Lactulose*) 30 ml PO Q6H PRN PRN Reason: constipation Magnesium Hydroxide (Milk Of Magnesia Liq*) 30 ml PO Q6H PRN PRN Reason: constipation Metoprolol Succinate (Toprol Xl Tab*) 50 mg [facility] [place] Morphine Sulfate (Morphine Inj (Syringe)*) 2 mg IV Q2H PRN PRN Reason: PAIN Ondansetron HCl (Zofran Inj*) 4 mg IV Q6H PRN PRN Reason: Nausea/Vomiting Ondansetron HCl (Zofran Inj*) 4 mg IV Q6H PRN PRN Reason: nausea Oxycodone HCl (Roxycodone Tab*) 10 mg PO Q4H PRN PRN Reason: SEVERE PAIN Oxycodone/Acetaminophen (Percocet 5/325 Tab*) 1 tab PO Q3H PRN PRN Reason: PAIN - MODERATE Oxycodone/Acetaminophen (Percocet 5/325 Tab*) 2 tab PO Q3H PRN PRN Reason: PAIN - MODERATE Last Admin: 08/11/16 08:01 Dose: 2 tab Pharmacy Profile Note (Coumadin Daily Reminder*) 1 note FOLLOW UP 1700 [facility] Last Admin: 08/10/16 17:06 Dose: 1 note Polyethylene Glycol/Electrolytes (Miralax*) 17 gm PO DAILY PRN PRN Reason: Constipation Warfarin Sodium (Coumadin Tab(*)) 7.5 mg PO ONCE@1700 ONE PRN Reason: Protocol Stop: 08/11/16 17:01 ] []
[2016-08-11] MEDS: Enoxaparin(*) 30 MG/0.3 ML SYR SUBCUT SCH (11:23)
--- NOTE | 2016-08-11 12:39 | PN ---
Subjective Date of Service: 08/11/16 Interval History: Patient reports an uneventful night. He is pain is well controlled and he did well with PT. Denies CP, SOB, abd pain, n/v. Objective Active Medications: Acetaminophen (Tylenol Tab*) 650 mg PO Q4H PRN PRN Reason: PAIN OR TEMPERATURE Albuterol (Ventolin Hfa Inhaler*) 2 puff INH BID [facility] Last Admin: 08/11/16 10:05 Dose: 2 puff Aspirin (Aspirin Tab*) 325 mg PO DAILY [facility] Atorvastatin Calcium (Lipitor*) 80 mg PO QAM [facility] Last Admin: 08/11/16 10:05 Dose: 80 mg Azelastine/Fluticasone (Dymista(Nf)) 1 spray BOTH NARES BID [facility] Last Admin: 08/11/16 10:02 Dose: Not Given Bisacodyl (Dulcolax Supp*) 10 mg PA DAILY PRN PRN Reason: constipation Cholestyramine Resin (Questran*) [facility] Diphenhydramine HCl (Benadryl Iv*) 12.5 mg IV Q6H PRN PRN Reason: PRURITIS Docusate Sodium (Colace Cap*) 100 mg PO BID [facility] Last Admin: 08/11/16 10:05 Dose: 100 mg Ezetimibe (Zetia Tab*) 10 mg PO QAM [facility] Last Admin: 08/11/16 10:05 Dose: 10 mg Enoxaparin Sodium (Lovenox(*)) 30 mg SUBCUT Q24H [facility] Last Admin: 08/11/16 11:23 Dose: 30 mg Lactated Ringer's (Lactated Ringers 1000 Ml Bag*) 1,000 mls @ 100 mls/hr IV PER RATE [facility] Last Admin: 08/11/16 01:49 Dose: 100 mls/hr Lactulose (Lactulose*) 30 ml PO Q6H PRN PRN Reason: constipation Magnesium Hydroxide (Milk Of Magnesia Liq*) 30 ml PO Q6H PRN PRN Reason: constipation Metoprolol Succinate (Toprol Xl Tab*) 50 mg PO QAM [facility] Morphine Sulfate (Morphine Inj (Syringe)*) 2 mg IV Q2H PRN PRN Reason: PAIN Ondansetron HCl (Zofran Inj*) 4 mg IV Q6H PRN PRN Reason: Nausea/Vomiting Ondansetron HCl (Zofran Inj*) 4 mg IV Q6H PRN PRN Reason: nausea Oxycodone HCl (Roxycodone Tab*) 10 mg PO Q4H PRN PRN Reason: SEVERE PAIN Oxycodone/Acetaminophen (Percocet 5/325 Tab*) 1 tab PO Q3H PRN PRN Reason: PAIN - MODERATE Oxycodone/Acetaminophen (Percocet 5/325 Tab*) 2 tab PO Q3H PRN PRN Reason: PAIN - MODERATE Last Admin: 08/11/16 08:01 Dose: 2 tab Pharmacy Profile Note (Coumadin Daily Reminder*) 1 note FOLLOW UP 1700 [facility] Last Admin: 08/10/16 17:06 Dose: 1 note Polyethylene Glycol/Electrolytes (Miralax*) 17 gm PO DAILY PRN PRN Reason: Constipation Vital Signs: Temp Pulse Resp BP Pulse Ox 98.3 F 72 15 115/65 100 08/11/16 12:01 08/11/16 12:01 08/11/16 12:01 08/11/16 12:01 08/11/16 12:01 Appearance: Well appearing middle aged gentleman in NAD Respiratory: Symmetrical Chest Expansion and Respiratory Effort, - - few crackles at lung bases Cardiovascular: NL Sounds; No Murmurs; No JVD, RRR Extremities: No Edema Skin: No Rash or Ulcers Neurological: Alert and Oriented x 3 Result Diagrams: 08/11/16 05:50 08/11/16 05:50 Assess/Plan/Problems-Billing Assessment: This is a 66 yo gentleman with h/o CAD, HTN and HLD who is s/p L GUCCI by Dr Fuller 08/10/16. Hospitalist group has been consulted for co-management. - Patient Problems (1) S/P total hip arthroplasty Comment: POD #1 Management per ortho. (2) CAD (coronary artery disease) Comment: No evidence of ACS Cont ASA, BB and statin (3) NORA (obstructive sleep apnea) Comment: Cont CPAP use (4) Hypertension Comment: Normotensive Continue metoprolol. (5) Hyperlipidemia Comment: Continue home lipid lowering agents (6) Full code status (7) DVT prophylaxis Comment: Lovenox bridging to Coumadin per ortho. Status and Disposition: Dispo per ortho, but anticipate dc tomorrow. Hospitalist group will sign off at this time, no acute medical concerns at this time. Patient can continue all home medications. Please call if new concerns develop and we are happy to re- evaluate
[2016-08-11] MEDS: Cholestyramine Resin* 4 GM POWDER PO SCH (14:33)
[2016-08-11] MEDS: Magnesium Hydroxide LIQ* 30 ML UDC PO PRN ×2 (14:35→20:25)
[2016-08-11] MEDS ORDERED: Warfarin TAB(*) 7.5 MG PO ONE (17:00)
[2016-08-12] MEDS: oxyCODONE/Acetamin 5/325 MG* TAB PO PRN (06:22)
[2016-08-12 07:15] LABS: Hematocrit 32 % (42-52); Hemoglobin 10.9 g/dl (14.0-18.0)
[2016-08-12] MEDS: Docusate CAP* 100 MG PO SCH (08:30)
[2016-08-12] MEDS: Metoprolol Succinate XL TAB* 50 MG PO SCH (08:30)
[2016-08-12] MEDS: Atorvastatin* 80 MG TAB PO SCH (08:31)
[2016-08-12] MEDS: ALBUTEROL INH SCH (08:31)
[2016-08-12] MEDS: Azelastine/Fluticasone NAS(NF) BTL BOTH NARES SCH (08:31)
[2016-08-12] MEDS: Ezetimibe TAB* 10 MG PO SCH (08:31)
--- NOTE | 2016-08-12 08:53 | PN ---
Progress Note - Progress Note SOAP: Subjective: Pt. is alert, no pain, feeling good, wants to go home. Objective: LLE - dressing changed, inc c/d/i. distally nvi. Vital Signs: Temp Pulse Resp BP Pulse Ox 97.5 F 70 16 109/57 96 08/12/16 07:31 08/12/16 07:31 08/12/16 08:22 08/12/16 07:31 08/12/16 07:41 Laboratory Results - last 24 hr 08/12/16 06:39 Hgb 10.9 L Hct 32 L Assessment: 66 yo M pod 2 s/p LTHA Plan: wbat lle with post hip precautions ecasa BID LUE IV removed, tip intact. d/c to home today
[2016-08-12] MEDS: Cholestyramine Resin* 4 GM POWDER PO SCH (09:00)
[2016-08-12] MEDS ORDERED: Aspirin TAB* 325 MG PO SCH (09:00)
[2016-08-12] MEDS: Enoxaparin(*) 30 MG/0.3 ML SYR SUBCUT SCH (10:41)
[2016-08-12 11:39] VITALS: BP 122/64
--- NOTE | 2016-08-14 07:43 | DS ---
DISCHARGE SUMMARY: DATE OF ADMISSION: 08/10/16 DATE OF DISCHARGE: 08/12/16 ADMITTING PHYSICIAN: Jessica Fuller MD. ADMITTING DIAGNOSES: 1. Left hip osteoarthritis. 2. Coronary artery disease. 3. Hyperlipidemia. 4. Hypertension. DISCHARGE DIAGNOSES: 1. Status post left total hip arthroplasty. 2. Coronary artery disease. 3. Hyperlipidemia. 4. Hypertension. PROCEDURE: Left total hip arthroplasty. CONSULTANTS: 1. Physical therapy. 2. Occupational therapy. 3. Medicine. BRIEF HISTORY: Mr. Amador is a 66-year-old male with severe degenerative osteoarthritis of his left hip. He failed conservative treatment measures and elected to undergo a left total hip arthroplasty on 08/10/[address] Fuller. HOSPITAL COURSE: Mr. Cantor was admitted to [facility] on . He underwent an uncomplicated left total hip arthroplasty. Postoperatively , he recovered on the short stay surgical unit. His Chairez catheter was removed on postoperative day 1 and he was able to urinate on his own. Postoperative day 2, he was able to have a bowel movement. He advanced to a regular diet without difficulty and his pain was well controlled with Percocet. He was restarted on home medications. His vital signs and labs remained stable. He was able to bear weight as tolerated on the left lower extremity. He advanced appropriately with physical therapy and occupational therapy. His DVT prophylaxis was bridged with Lovenox and Coumadin and so he reached therapeutic INR range. The patient then had Coumadin discontinued and began a DVT prophylaxis of aspirin 325 mg daily. By postoperative day #2, he was orthopedically and medically stable for discharge home with services. PHYSICAL EXAMINATION: General: The patient is noted to be calm and cooperative , in no acute distress. He is alert and oriented x3. Vital Signs: On the day of discharge, temperature 97.5 degrees Fahrenheit, pulse rate 70, respiratory rate 14, O2 sat 96% on room air, blood pressure 109/57. Extremities: Examination of the left lower extremity demonstrates a dressing overlying the left hip, which is clean, dry and intact. His thigh is swollen but compressible. Distally, he has +2 palpable DT pulse and appropriate gross motor function. Sensation is intact to light touch. RADIOGRAPHS: Postoperative radiographs of left hip demonstrates left total hip arthroplasty with satisfactory prosthesis placement and no acute bony abnormality. DISCHARGE MEDICATIONS: 1. Albuterol inhaler 2 puffs b.i.d. 2. Atorvastatin 80 mg daily. 3. Aspirin 325 mg daily. 4. Azelastine/fluticasone one spray b.i.d. 5. Cholestyramine 18 g q.a.m. 6. Ezetimibe 10 mg daily. 7. Metoprolol 50 mg daily. 8. Percocet 5/325 one to two tabs q.4-6 hours p.r.n. pain. 9. Calcium and magnesium zinc 2 tabs daily. 10. Cetirizine 10 mg daily. 11. Chromium 100 daily. 12. Coenzyme Q10 100 mg daily. 13. Docusate 100 mg b.i.d. 14. Glucosamine chondroitin 2 tabs daily. 15. Ipratropium bromide one spray q. 12h. p.r.n. pain. 19. [place]-3 fatty acids 1 cap daily. 20. Potassium 99 mg daily. 21. Selenium 100 mcg daily. CONDITION ON DISCHARGE: Stable. DISCHARGE INSTRUCTIONS: Mr. Amador is a 66-year-old male, postoperative day #2 status post left total hip arthroplasty, which was uncomplicated. He is orthopedically medically stable to be discharged home with services. He has stable vital signs and labs. He has restarted home medications. He will use aspirin 325 mg daily for DVT prophylaxis. He will remain weightbearing as tolerated on the left lower extremity and have home physical therapy twice a day. He will take Percocet for pain control. He will follow up in the office with Dr. Fuller in 10 to 14 days for incision check. He was instructed to call Dr. Fuller or go immediately to the ER should he develop any new fevers, chills, incision pain, redness of drainage. He is instructed to go immediately to the ER should he develop chest pain or shortness of breath. PONCE JAMES [id number]/[facility] [place] #: [id number] MTDD
== END 2016-08-12 13:35 | disposition home health service (06) | DRG 470 ==
LOC: AA 08:40 → SSU 13:44
PROVIDERS: ADMIT Orthopaedic Surgery Adult Reconstructive Orthopaedic Surgery; ATTEND Orthopaedic Surgery Adult Reconstructive Orthopaedic Surgery
PROC: 0SRB04A Replacement of Left Hip Joint with Ceramic on Polyethylene Synthetic Substitute, Uncemented, Open Approach (ICD-10-PCS; principal; 2016-08-10 10:00)
PROC: 3E0234Z Introduction of Serum, Toxoid and Vaccine into Muscle, Percutaneous Approach (ICD-10-PCS; 2016-08-11)
DX: M16.12 Unilateral primary osteoarthritis, left hip (principal); Z96.641 Presence of right artificial hip joint; I10 Essential (primary) hypertension; I25.10 Atherosclerotic heart disease of native coronary artery without angina pectoris; E78.5 Hyperlipidemia, unspecified; Z79.82 Long term (current) use of aspirin; Z95.5 Presence of coronary angioplasty implant and graft; G47.33 Obstructive sleep apnea (adult) (pediatric); Z88.8 Allergy status to other drugs, medicaments and biological substances; Z85.828 Personal history of other malignant neoplasm of skin; Z98.49 Cataract extraction status, unspecified eye; Z82.49 Family history of ischemic heart disease and other diseases of the circulatory system; Z81.8 Family history of other mental and behavioral disorders; J42 Unspecified chronic bronchitis; Z23 Encounter for immunization
CPT/HCPCS: 36415; 72170; 80048; 85014; 85018; 85610; 88304; 88311; 90732; 94760; A9270-GY; C1776; J0690; J1650; J2250; J3010